=== PATIENT | male | born 1950 | race Caucasian/White ===

== ENCOUNTER 2022-04-13 08:56 | Day surgery (SDC) | payer BC ==
[~2022-04-13] VITALS: Ht 188 cm; Wt 82.4 kg
[~2022-04-13 08:56] MED LIST: ALLO100T PO; ASPI-1265 PO; ATOR40TA14 PO; DET2LAC PO
[2022-04-13] MEDS ORDERED: LIDOcaine 1% 30ml preserv. free vial IJ STA (10:39)
[2022-04-13 10:45] VITALS: BP 127/80
[2022-04-13 10:50] VITALS: BP 126/77
[2022-04-13 10:54] VITALS: BP 145/81
[2022-04-13 11:00] VITALS: BP 112/64
[2022-04-13 11:03] VITALS: BP 112/64
[2022-04-13 11:11] VITALS: BP 113/67
== END 2022-04-13 11:35 | disposition home or self-care (01) ==
LOC: SSTAY O 08:56
PROVIDERS: ATTEND Physician Assistant
DX: E04.1 Nontoxic single thyroid nodule (principal); E78.5 Hyperlipidemia, unspecified; Z79.899 Other long term (current) drug therapy; Z98.890 Other specified postprocedural states; Z91.011 Allergy to milk products; Z88.8 Allergy status to other drugs, medicaments and biological substances
CPT/HCPCS: 10005; 10007

== ENCOUNTER 2022-08-31 05:26 | Day surgery (SDC) | payer BC ==
[2022-08-28 15:20] LABS: BASOPHILS # (AUTO) 0.1 X10'3 (0-0.2); BASOPHILS % (AUTO) 1.1 % (0-1); EOSINOPHILS # (AUTO) 0.2 X10'3 (0-0.9); EOSINOPHILS % (AUTO) 2.8 % (0-6); LYMPHOCYTES # (AUTO) 1.1 X10'3 (1.1-4.8); LYMPHOCYTES % (AUTO) 19.6 % (21-51); MEAN CORPUSCULAR HEMOGLOBIN 32.2 PG (27.0-31.0); MEAN CORPUSCULAR HGB CONC 33.6 g/dL (33.0-36.5); MEAN CORPUSCULAR VOLUME 95.7 FL (78-98); MEAN PLATELET VOLUME 9.6 FL (7.4-10.4); MONOCYTES # (AUTO) 0.5 X10'3 (0-0.9); MONOCYTES % (AUTO) 9.1 % (2-12); NEUTROPHILS % (AUTO) 67.4 % (42-75); PRE OP HEMATOCRIT 44.2 % (42.0-52.0); PRE OP HEMOGLOBIN 14.8 g/dL (14.0-17.9); PRE OP PLATELET COUNT 134 X10'3 (140-440); RED BLOOD COUNT 4.62 X10'6 (4.70-6.10); RED CELL DISTRIBUTION WIDTH 14.3 % (11.5-14.5)
[2022-08-28 15:41] LABS: ALBUMIN 3.7 G/DL (3.4-5.0); ALBUMIN/GLOBULIN RATIO 1.2 (1.1-1.5); ALKALINE PHOSPHATASE 96 IU/L (46-116); BLOOD UREA NITROGEN 16 MG/DL (7-18); CALCIUM 8.8 MG/DL (8.5-10.1); CHLORIDE 108 MMOL/L (99-107); PRE OP ALT 43 U/L (30-65); PRE OP ANION GAP 5 (8-16); PRE OP AST 37 U/L (10-37); PRE OP BILIRUB, TOTAL 0.6 MG/DL (0.0-1.0); PRE OP GLUCOSE 80 MG/DL (70-104); PRE OP POTASSIUM 4.2 MMOL/L (3.4-5.1); PRE OP SODIUM 143 MMOL/L (135-145); TOTAL CARBON DIOXIDE 29.8 MMOL/L (24-32); TOTAL PROTEIN 6.8 G/DL (6.4-8.2); eGFR > 90 ML/MIN
[~2022-08-31] VITALS: Ht 188 cm; Wt 83.6 kg
[2022-08-31] VITALS (16 sets, daily range): BP systolic 116–154; BP diastolic 74–88
[~2022-08-31 05:26] MED LIST changes: +ASPI-1071 PO; -ASPI-1265 PO; +ringers solution, lacted 1,000 ML IV SCH
[2022-08-31] MEDS ORDERED: cefazolin 2gm/D5W 100mL 100 ML IV ONE (05:30)
[2022-08-31] MEDS ORDERED: famotidine 20mg tablet PO ONE (05:30)
[2022-08-31] MEDS ORDERED: fentaNYL/PF 50MCG/1 ML 2ML syringe ONE (08:50)
[2022-08-31] MEDS ORDERED: MIDAZolam 1 MG/ML 5ML VIAL ONE (08:51)
[2022-08-31] MEDS ORDERED: ROPIVAcaine 0.5% (5mg/ml) 30ml vial ONE (08:52)
[2022-08-31] MEDS ORDERED: propofol inj 20 ML IV ONE (08:53)
[2022-08-31] MEDS ORDERED: ePHEDrine 50MG/ML INJ. ONE (09:53)
[2022-08-31] MEDS ORDERED: ROPIVAcaine 0.2% (10 MG/5 ML) BOLUS INJECTION INTERSCALE PRN (10:00)
[2022-08-31] MEDS ORDERED: ringers solution, lacted 1,000 ML IV SCH (10:00)
[2022-08-31] MEDS ORDERED: ROPIVAcaine 0.2%/PF PUMP/bolus 545 ML INTERSCALE SCH (10:00)
[2022-08-31] MEDS ORDERED: ondansetron/PF 4mg/2ml inj IV PRN (10:00)
[2022-08-31] MEDS ORDERED: meperidine/PF 25mg/ml syringe IV PRN ×3 (10:00)
[2022-08-31] MEDS ORDERED: morphine 2 MG/ML inj. syringe IV PRN (10:00)
[2022-08-31] MEDS ORDERED: morphine 4 MG/ML inj SYRINge IV PRN (10:00)
[2022-08-31] MEDS ORDERED: proCHLORperazine 10 MG/2 ml inj IV PRN (10:00)
[2022-08-31] MEDS ORDERED: ondansetron/PF 4mg/2ml inj ONE (10:28)
[2022-08-31] MEDS ORDERED: dexamethasone sod phosphate 4mg/ml inj. ONE (10:29)
--- NOTE | 2022-08-31 10:46 | NUR ---
Received from OR via [facility] TO ROOM 6, accompanied by Anesthesiologist DR SALGADO and report given by Anesthesiolgist. PT PRESENTS WITH PIV 20G LEFT HAND, RIGHT SHOULDER WITH WRAP CDI, POWDER PACK AND ON-Q ANNMARIE MCDONALD. Addendum: 08/31/22 at 1105 by Monica Ramos RN, RN Amended: Links added.
[2022-08-31] MEDS ORDERED: HYDROcodone/acetaminophen 10/325mg tab PO PRN (10:55)
--- NOTE | 2022-08-31 13:16 | NUR ---
DC HOME: ABLE TO SAFELY AMBULATE AND TRANSFER SELF. IV TAKEN OUT WITHOUT ANY COMPLICATIONS. ALL DISCHARGE INSTRUCTIONS COVERED WITH PATIENT AND ALL QUESTIONS ANSWERED. PATIENT TAKEN OUT VIA WHEELCHAIR TO PERSONAL VEHICLE WHERE FAMILY/FRIEND DROVE PATIENT HOME. Addendum: 08/31/22 at 1331 by Monica Ramos RN, RN Amended: Links added.
== END 2022-08-31 13:16 | disposition home or self-care (01) ==
LOC: PAS 05:26
PROVIDERS: ATTEND Orthopaedic Surgery
DX: M75.21 Bicipital tendinitis, right shoulder (principal); M75.41 Impingement syndrome of right shoulder; M19.011 Primary osteoarthritis, right shoulder; M75.51 Bursitis of right shoulder; S43.431A Superior glenoid labrum lesion of right shoulder, initial encounter; M19.012 Primary osteoarthritis, left shoulder; M18.12 Unilateral primary osteoarthritis of first carpometacarpal joint, left hand; F32.A Depression, unspecified; F41.9 Anxiety disorder, unspecified; M10.9 Gout, unspecified; I10 Essential (primary) hypertension; I44.0 Atrioventricular block, first degree; G89.18 Other acute postprocedural pain; Z79.899 Other long term (current) drug therapy; Z96.612 Presence of left artificial shoulder joint; Z98.890 Other specified postprocedural states; Z72.89 Other problems related to lifestyle; Z98.1 Arthrodesis status; Z95.2 Presence of prosthetic heart valve; Z88.8 Allergy status to other drugs, medicaments and biological substances; X58.XXXA Exposure to other specified factors, initial encounter; Y93.89 Activity, other specified; Y92.89 Other specified places as the place of occurrence of the external cause; Y99.8 Other external cause status
CPT/HCPCS: 29826; 29828; 36415; 64416; 80053; 82948; 85025; C1713; J0690; J1100; J2250; J2405; J2704; J2795; J3010; J3490; J7120; Z7506; Z7508; Z7512; A4565; A4618; A6449; A7000